=== PATIENT | male | born 2000 ===

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

== ENCOUNTER 2021-03-04 11:30 | Outpatient (CLI) | payer OTHER | END 2021-03-04 12:43 | disposition home or self-care (01) | LOC: OFIC 805 11:30 | PROVIDERS: ATTEND Otolaryngology | DX: H93.8X3 Other specified disorders of ear, bilateral (principal); H61.23 Impacted cerumen, bilateral; H90.42 Sensorineural hearing loss, unilateral, left ear, with unrestricted hearing on the contralateral side ==